=== PATIENT | male | born 1955 | race Caucasian/White ===

== ENCOUNTER 2019-08-05 09:50 | Outpatient (CLI) | payer BC ==
[~2019-08-05] VITALS: Ht 177.8 cm; Wt 104.5 kg
--- NOTE | ~2019-08-05 | HEMODYNAMI ---
PATIENT:YVETTE KEARNS MEDICAL RECORD: [id number] : 59 LOCATION:[facility] ADMISSION DATE: 08/05/19 Generatedon:08/05/201913:56 Patient name: YVETTE KEARNS Patient #: [id number] SSN: [id number] : 1955 Date of study: 08/05/2019 Page: Of Hemodynamic Procedure Report Patient Data Patient Demographics Procedure consent was obtained First Name: YVETTE Gender: Male Last Name: URMILA : 1955 Middle Initial: YING Age: 64 year(s) Patient #: [id number] Race: SSN: [id number] Additional ID: [id number] Contact details Address: [facility] [address] State: [facility] Zip code: [address] Past Medical History History of disease Date Diagnosis Comments CAD Allergies: No known allergies Admission Admission Data Admission Date: 08/05/2019 Admission Time: 9:50 Arrival Date: 08/05/2019 Arrival Time: 0:00 Admit Source: Other Insurance Payor: Private health insurance [facility] #: [id number] Height (in.): 70 BSA: 2.22 (m2) Height (cm.): 177.8 BMI: 33.07 (kg/m2) Weight (lbs.): 230.47 Weight (kg.): 104.54 Lab Results Lab Result Date: 08/05/2019 Lab Result Time: 0:00 Biochemistry Name Units Result Min Max BUN mg/dl 10 --(-*--)-- 7 18 Creatinine mg/dl 0.9 --(-*--)-- 0.6 1.3 eGFR ml/min 90 --(*---)-- 90 120 NONAFRICAN CBC Name Units Result Min Max Hematocrit % 48.8 --(--*-)-- 42 54 Hemoglobin g/dl 16.9 --(---*)-- 13.5 17.5 Procedure Procedure Types Cath Procedure Diagnostic Procedure [facility] w/Coronaries FFR/IVUS FFR Initial Sedation Charges Moderate Sedation up to 30 minutes PCI Procedure Coronary Stent Coronary Stent Initial x2 Hemochron ACT Test Procedure Description Procedure Date Procedure Date: 08/05/2019 Procedure Start Time: 13:21 Procedure End Time: 13:53 Procedure Staff Name Function Oc Bearden MD Performing Physician Mya Peralta RT Monitor Kayla Miles RT Scrub Jose Paige RN Nurse Indication Angina Procedure Data Cath Procedure Fluoroscopy Diagnostic fluoroscopy Total fluoroscopy Time: 8.3 time: 8.3 min min Diagnostic fluoroscopy Total fluoroscopy dose: dose: 1377 mGy 1377 mGy Contrast Material Contrast Material Type Amount (ml) Isovue 300 127 Entry Location Entry Primary Successful Side Size Upsize Upsize Entry Closure Dahl ccessful Closure Location (Fr) 1 (Fr) 2 (Fr) Remarks Device Remarks Radial Right 6 Fr Mechanical artery Short Compression Estimated blood loss: 10 ml Diagnostic catheters Device Type Used For End Catheter Placement DIAGNOSTIC Pledger 110cm 5 Procedure Fr catheter ([id number]) Procedure Complications No complications Procedure Medications Medication Administration Route Dosage Oxygen etCO2 Nasal cannula 2 l/min Lidocaine 2% added to field 20 Heparin Flush Bag added to field 2 bags (1000units/500ml NS) 0.9% NaCl I.V. 100 ml/hr Versed I.V. 2 mg Fentanyl I.V. 50 mcg Versed I.V. 1 mg Fentanyl I.V. 50 mcg Heparin Bolus I.V. 4000 units Versed I.V. 0.5 mg Fentanyl I.V. 25 mcg Hemodynamics Rest BSA: 2.22 (m2) HGB: 16.9 (g/dl) O2 Consumption: Estimated: 254.22 (ml/min) O2 Co nsumption indexed: Estimated:114.51 (ml/min/m) Heart Rate: 63 (bpm) Snapshots Pre Cath Intra NCS Post Cath Vital Signs Time Heart Resp SPO2 etCO2 NIBP (mmHg) Rhythm Pain Sedation Rate (ipm) (%) (mmHg) Status Level (bpm) 12:58:36 61 16 96 0 133/67(95) NSR 0 (11) 10(A) , No pain 13:02:58 67 13 96 40.5 131/75(94) NSR 0 (11) 10(A) , No pain 13:07:21 66 12 95 42.1 123/71(93) NSR 0 (11) 10(A) , No pain 13:11:39 64 14 96 36.7 133/73(114) NSR 0 (11) 10(A) , No pain 13:15:59 64 14 96 38.3 124/70(104) NSR 0 (11) 10(A) , No pain 13:20:19 65 16 95 37.5 122/71(87) NSR 0 (11) 10(A) , No pain 13:24:33 68 15 93 38.3 99/56(74) NSR 0 (11) 9(A) , No pain 13:28:45 67 12 94 40.5 102/66(80) NSR 0 (11) 9(A) , No pain 13:32:55 65 13 94 42.1 103/59(73) NSR 0 (11) 9(A) , No pain 13:37:11 63 12 93 42.8 108/56(82) NSR 0 (11) 9(A) , No pain 13:41:25 62 12 94 42.1 104/57(83) NSR 0 (11) 10(A) , No pain 13:46:28 60 14 95 38.2 122/61(88) NSR 0 (11) 10(A) , No pain 13:50:44 58 16 96 38.2 117/71(84) NSR 0 (11) 10(A) , No pain Medications Time Medication Route Dose Verified Delivered Reason Notes Effectiveness by by 13:00:34 Oxygen etCO2 2 Oc Garcia used for Nasal l/min Suleiman Paige RN procedure cannula 13:00:40 Lidocaine 2% added 20ml Oc Renae for local to vial Suleiman Bearden MD anesthetic field 13:00:45 Heparin Flush added 2 Oc Renae used for Bag to bags Suleiman Bearden MD procedure (1000units/500ml field NS) 13:00:54 0.9% NaCl I.V. 100 Oc Garcia Per physician ml/hr Suleiman Paige RN 13:20:13 Versed I.V. 2 mg Oc Garcia for sedation Suleiman Paige RN 13:20:19 Fentanyl I.V. 50 Oc Buffie for sedation mcg Suleiman Paige RN 13:24:34 Versed I.V. 1 mg Oc Garcia for sedation Suleiman Paige RN 13:24:38 Fentanyl I.V. 50 Oc Sewellie for sedation mcg Suleiman Paige RN 13:29:12 Heparin Bolus I.V. 4000 Oc Garcai for units Suleiman Paige RN anticoagulation 13:33:43 Versed I.V. 0.5 Oc Garcia for sedation mg Suleiman Paige RN 13:33:48 Fentanyl I.V. 25 Oc Garcia for sedation mcg Suleiman Paige RN Procedure Log Time Note 11:37:14 Diagnostic Cath Status : Elective 11:37:41 Indication : Angina 11:47:10 Risk of Mortality: 0.1 11:47:13 Risk of blood transfusion: 0.1 11:47:15 Risk of SONIA: 0.2 11:47:21 Stress Test: no; N/A ? 11:47:26 Lab results completed and on chart. 11:47:57 Lab Result : BUN 10 mg/dl 11:47:57 Lab Result : Creatinine 0.9 mg/dl 11:47:57 Lab Result : Hemoglobin 16.9 g/dl 11:47:57 Lab Result : eGFR NONAFRICAN 90 ml/min 11:47:57 Lab Result : Hematocrit 48.8 % 11:48:02 Admit Source: Other 11:48:06 Procedure Status Elective Heart Cath (OP). 11:48:09 Time tracking: Regular hours (M-F 7:00 - 5:00) 11:48:14 Plan of Care:Hemodynamics will remain stable., Cardiac rhythm will remain stable., Comfort level will be maintained., Respiratory function will remain adequate., Patient/ family verbilizes understanding of procedure., Procedure tolerated without complication., Recovers from procedure without complications.. 11:48:35 Informed consent obtained and on chart 11:49:03 Patient allergic to No known allergies 11:51:04 Arrival Date: 08/05/2019 12:00:00 AM 11:51:13 Insurance Payor : Private health insurance 11:51:31 Patient Height : 70 inches 11:51:35 Patient Weight : 230.47 lbs 11:52:11 H&P Date Dictated: 08/04/2019 Within 30 days and on chart.. 11:52:16 Patient NPO since Midnight. 12:42:22 Jose Paige RN sent for patient. Start room use. 12:47:47 Patient received from Pre/Post Procedure Room to CCL 1 Alert and oriented. Tansferred to table in Supine position. 12:47:53 Warm blankets applied, and bebeto hugger turned on for patient comfort. 12:47:54 Correct patient and procedure confirmed by team. 12:47:54 ECG and BP/O2 sat monitors applied to patient. 12:47:59 Alarms reviewed by R. N. 12:47:59 Sharps counted by scrub and verified by R.N. 12:48:09 Pre-procedure instructions explained to patient. 12:48:10 Pre-op teaching completed and patient verbalized understanding. 12:48:12 Family in waiting room. 12:57:17 Vital chart was started 12:57:19 Baseline sample Acquired. 12:57:23 Rhythm: sinus rhythm 12:57:24 Full Disclosure recording started 12:57:27 Is the patient allergic to Iodine/contrast media? No. 12:57:28 Is patient on blood thinner?Yes 12:57:30 ACC The patient was administered the following blood thiners within the last 24 hours: ACCPlavix 12:57:34 Patient diabetic? No. 12:57:44 Previous problem with sedation/anesthesia? No ? 12:57:45 Snore? Yes 12:57:46 Sleep apnea? No 12:57:47 Deviated septum? No 12:57:49 Opens mouth fully? Yes 12:57:49 Sticks out tongue? Yes 12:57:51 Airway obstruction? No ? 12:57:54 Dentures? No ? 12:57:56 Modified Familia's test Ulnar < 7 seconds 12:57:58 Pre procedure: right dorsailis pedis pulse 1+ Palpable, but thready & weak; easily obliterated 12:58:01 Patient pain scale 0/10 ?. 12:58:15 IV patent on arrival in left forearm with 0.9% NaCl at [facility]. 12:58:24 Right Radial & Right Groin area was prepped with chlora-prep and draped in sterile fashion 13:00:34 Oxygen 2 l/min etCO2 Nasal cannula was administered by Jose Paige RN; used for procedure; Verbal order read back and verified. 13:00:40 Lidocaine 2% 20ml vial added to field was administered by Oc Bearden MD; for local anesthetic; Verbal order read back and verified. 13:00:45 Heparin Flush Bag (1000units/500ml NS) 2 bags added to field was administered by Oc Bearden MD; used for procedure; Verbal order read back and verified. 13:00:54 0.9% NaCl 100 ml/hr I.V. was administered by Jose Paige RN; Per physician; Verbal order read back and verified. 13:02:38 Use device set Radial Dx or PCI 13:02:39 ACIST Syringe (40442) opened to sterile field. 13:02:41 Bag Decanter () opened to sterile field. 13:02:41 ACIST Hand Control (24493) opened to sterile field. 13:02:41 ACIST Manifold (46533) opened to sterile field. 13:02:47 Tegaderm 4 x 4 (1626W) opened to sterile field. 13:02:48 Medline Cath Pack ([id number]) opened to sterile field. 13:02:49 MBrace Wrist Support ([id number]) opened to sterile field. 13:02:50 EMERALD Guide Wire (615-518) opened to sterile field. 13:02:50 SHEATH 6FR RAIN (1174471) opened to sterile field. 13:19:31 --------ALL STOP TIME OUT------ 13:19:31 Final Timeout: patient, procedure, and site verified with staff and physician. All members of the team are in agreement. 13:19:34 Right Radial & Right Groin site verified by team. 13:19:37 Fire Safety Assessment: A--An alcohol-based skin anteseptic being used preoperatively., C--Open oxygen or nitrous oxide is being used., D--An ESU, laser, or fiber-optic light is being used. 13:19:39 Physical assessment completed. ASA score P 2 - A patient with mild systemic disease as per Oc Bearden MD. 13:19:42 1) 90+ Normal kidney functon but urine findings or structural abnormalities or genetic trait point to kidney disease. 13:19:44 Maximum allowable contrast dose (3.7 X eGFR X 0.75)250 ml. 13:19:51 Sedation plan: IV Moderate Sedation Medication:Versed, Fentanyl 13:20:13 Versed 2 mg I.V. was administered by Jose Paige RN; for sedation; Verbal order read back and verified. ::19 Fentanyl 50 mcg I.V. was administered by Jose Paige RN; for sedation; Verbal order read back and verified. 13:21:05 Zero performed for pressure channel P1 13:21:09 Procedure started. 13:21:32 Local anesthetic to right radial artery with Lidocaine 2% by Oc Bearden MD.INITIAL ACCESS ONLY 13:22:00 Zero performed for pressure channel P1 13:22:25 A 6 Fr Short sheath was inserted into the Right Radial artery 13::59 A DIAGNOSTIC Pledger 110cm 5 Fr catheter (077486) was advanced over the wire and used for Procedure. 13:23:32 LV gram done using PUENTES 13:23:35 Injector settings: Ml/sec: 5, Volume: 15, 13:23:52 EF : 65 % 13:24:34 Versed 1 mg I.V. was administered by Jose Paige RN; for sedation; Verbal order read back and verified. 13:24:38 Fentanyl 50 mcg I.V. was administered by Jose Paige RN; for sedation; Verbal order read back and verified. 13:24:41 LCA angiography performed. 13:25:18 RCA angiography performed. 13:25:20 Catheter exchanged over wire. 13:26:05 INFLATOR Merit BasixCompak (QR4747) opened to sterile field. 13:26:06 Fountain Verrata Plus pressure wire (57657Y) opened to sterile field. 13:26:59 Proceeding to intervention. 13:27:03 GUIDE 6FR XBLAD 3.5 catheter ([id number]) opened to sterile field. 13:27:05 6 Fr XBLAD 3.5 guide catheter was inserted over the wire 13:27:11 FFR/IFR wire advanced. 13:27:56 Wire advanced across lesion. 13:28:22 LMCA lesion measured at .74 with IFR 13:28:35 Pre PCI Site: [place] LMCA has 80% stenosis. 13:29:10 IFR WIRE REMOVED 13:29:12 Heparin Bolus 4000 units I.V. was administered by Jose Paige RN; for anticoagulation; Verbal order read back and verified. 13:29:20 CHOICE PT Extra Support 182cm wire ([id number]) opened to sterile field. 13:29:56 Pre PCI Site: [place] Diag1 has 95% stenosis. 13:30:20 CHOICE ES 182 wire advanced. 13:30:35 CHOICE WIRE ADVANCED ACROSS DIAG 13:31:34 The HILLARY RX 2.25 x 15 stent ([id number]) was advanced then removed because of failure to cross lesion 13:33:13 Inflate balloon Inflation number: 1 A EUPHORA 2.0 x 15 Balloon ([id number]) was prepped and advanced across the 1st Diag , then inflated to 17 IRON for 0:00 (min:sec) . 13:33:15 Balloon removed over the wire. 13:33:43 Versed 0.5 mg I.V. was administered by Jose Paige RN; for sedation; Verbal order read back and verified. 13:33:48 Fentanyl 25 mcg I.V. was administered by Jose Paige RN; for sedation; Verbal order read back and verified. 13:34:20 Place stent Inflation Number: 2 A HILLARY RX 2.25 x 15 stent ([id number]) was prepped and advanced across the 1st Diag . The stent was deployed at 15 IRON for 0:00 (min:sec) . 13:34:34 Inflation number: 3 The stent balloon was then re-inflated across the 1st Diag to 21 IRON for 0:00 (min:sec) . 13:35:13 Stent catheter was removed intact over wire. 13:36:24 Place stent Inflation Number: 1 A HILLARY RX 3.5 x 15 stent ([id number]) was prepped and advanced across the LMCA . The stent was deployed at 17 IRON for 0:00 (min:sec) . 13:36:37 Stent catheter was removed intact over wire. 13:37:06 Pre PCI Site: [place] Circ has 90% stenosis. 13:37:12 Wire redirected to CIRC. 13:38:52 UNABLE TO CROSS CIRC LESION. WIRE REMOVED 13:38:58 FIELDER XT 190cm guidewire ([id number]) opened to sterile field. 13:39:09 FIELDER 190 wire advanced. 13:40:44 FIELDER ADVANCED ACROSS THE CIRC 13:41:52 Inflation number: 1 The EUPHORA 2.0 x 15 Balloon ([id number]) was reinflated across the Prox CX , to 23 IRON for 0:00 (min:sec) . 13:42:01 Balloon removed over the wire. 13:43:14 Place stent Inflation Number: 2 A HILLARY RX 3.5 x 08 stent ([id number]) was prepped and advanced across the Prox CX . The stent was deployed at 15 IRON for 0:00 (min:sec) . 13:43:39 Stent catheter was removed intact over wire. 13:43:44 Wire removed. 13:43:44 Guide catheter removed. 13:45:58 Procedure ended.(Physican Out) 13:47:31 ZEPHYR REGULAR TR BAND (642772) opened to sterile field. 13:47:39 Sheath removed intact; hemostasis achieved with Mechanical Compression to the Right Radial artery. 13:47:45 Fluoroscopy time 08.30 minutes. 13:47:49 Fluoroscopy dose: 1377 mGy 13:47:49 Flurop Dose total: 1377 13:47:56 Dose Area Product 06240 mGy/cm. 13:48:01 Contrast amount:Isovue 300 127ml. 13:48:04 Maximum allowable dose exceeded? No. 13:48:05 Sharps counted by scrub and verified by R.N. 13:48:22 [place] band inflated with 10cc of air. 13:48:51 Post-procedure physical assessment completed. ASA score P 2 - A patient with mild systemic disease as per Oc Bearden MD. 13:48:55 Post procedure rhythm: sinus bradycardia 13:49:02 Estimated blood loss: 10 ml 13:49:03 Post procedure instruction explained to patient.Patient verbalizes understanding. 13:49:03 Patient needs reinforcement of post procedure teaching. 13:50:18 Procedure type changed to Cath procedure, Diagnostic procedure, LHC, LHC w/Coronaries, FFR/IVUS, FFR Initial, Sedation Charges, Moderate Sedation up to 30 minutes, PCI procedure, Coronary Stent, Coronary Stent Initial x2, Hemochron ACT Test 13:52:16 ACT drawn and resulted at 311 seconds. (normal therapeutic range 180-240 seconds). 13:52:41 Procedure and supply charges have been captured, reviewed, submitted and are correct. 13:52:46 Procedure Complication : No complications 13:52:48 Vital chart was stopped 13:52:50 [facility] Findings: MVD- PCI performed (see procedure note) 13:52:55 Operative report dictated upon procedure completion. 13:52:55 See physician's report for complete and final results. 13:52:58 Report given to Pre/Post Procedure Room. 13:53:01 Patient transfered to Pre/Post Procedure Room with Bed. 13:53:12 Procedure ended. 13:53:12 Full Disclosure recording stopped 13:53:18 ACC-PCI Only Patient was given prescriptions, or instructed by Oc Bearden MD to start/continue the following medications upon discharge: Plavix 13:53:19 End room use (Document Last) 13:55:19 End room use (Document Last) 13:55:49 End room use (Document Last) Intervention Summary Intervention Notes Time ActionType Lesion and Equipment Used Action# Pressure Duration Attributes 13:31:34 Discard HILLARY RX 2.25 x Stent 15 stent ([id number]) 13:33:13 Inflate 1st Diag EUPHORA 2.0 x 1 17 00:00 balloon 15 Balloon ([id number]) 13:34:20 Place stent 1st Diag HILLARY RX 2.25 x 2 15 00:00 15 stent ([id number]) 13:34:34 Reinflate 1st Diag HILLARY RX 2.25 x 3 21 00:00 stent 15 stent balloon ([id number]) 13:36:24 Place stent LMCA HILLARY RX 3.5 x 1 17 00:00 15 stent ([id number]) 13:41:52 Reinflate Prox CX EUPHORA 2.0 x 1 23 00:00 balloon 15 Balloon ([id number]) 13:43:14 Place stent Prox CX HILLARY RX 3.5 x 2 15 00:00 08 stent ([id number]) Device Usage Item Name Manufacture Quantity Catalog Number Hospital Part Current Minimal Lot# / Charge Number Stock Stock Serial# Code ACIST Syringe Acist 1 67072 247163 490317 905456 20 (31945) Medical Systems Inc Bag Decanter Microtek 1 2001S 841826 30688 186196 5 () Medical Inc. ACIST Hand Acist 1 93826 103834 361065 243170 5 Control Medical (66210) Systems Inc ACIST Manifold Acist 1 65481 080286 279940 532392 5 (26387) Medical Systems Inc Tegaderm 4 x 4 3M 1 1626W 675235 112526 934582 5 (1626W) Medline Cath Medline 1 [id number] 064160 22004 385817 5 Pack ([id number]) MBrace Wrist Advanced 1 140-0250-00 659388 18785 826888 5 Support Vascular (134000963) Dynamics EMERALD Guide Cardinal 1 502-455 699264 131099 095623 5 Wire (502-455) Health SHEATH 6FR Cardinal 1 3337547 693494 0420771 641005 5 RAIN (2256238) Health DIAGNOSTIC Terumo 1 40-8303 909207 708602 933207 5 Pledger 110cm 5 Fr catheter (903549) INFLATOR Merit Merit 1 RA9176 933471 165540 700722 15 BasixCompak Medical (NU6217) Fountain Fountain 1 35719C 738272 958991595 881755 5 Verrata Plus pressure wire (96219K) GUIDE 6FR Cardinal 1 [id number] 752603 622980 151566 10 XBLAD 3.5 Health catheter (67229716) CHOICE PT Crawford 1 [id number] 951912 454191 706547 5 Extra Support Scientific 182cm wire ([id number]) HILLARY RX 2.25 x Medtronic 2 [id number] 998153 7573368 493918 5 [id number] 15 stent [id number] ([id number]) EUPHORA 2.0 x Medtronic 1 [id number] 554500 366788 698731 5 15 Balloon ([id number]) HILLARY RX 3.5 x Medtronic 1 [id number] 973463 2146011 372810 5 [id number] 15 stent ([id number]) FIELDER XT Asahi Intecc 1 [id number] 113392 76233 163925 5 190cm guidewire ([id number]) HILLARY RX 3.5 x Medtronic 1 [id number] 643281 2078609 913230 5 [id number] 08 stent ([id number]) ZEPHYR REGULAR Cardinal 1 242900 226683 3185967 460875 5 [facility] (901076) Signature Audit [place] Stage Time Signature Unsigned Intra-Procedure 08/05/2019 Mya Peralta 1:55:19 PM RT(R) Intra-Procedure 08/05/2019 Jose Paige RN 1:55:49 PM Intra-Procedure 08/05/2019 Oc Bearden 1:56:37 PM [id number] [place] [address]
[~2019-08-05 09:50] MED LIST: BAYER CHEWABLE81 MG PO; PLAVIX75 MG PO; PRAVACHOL40 MG PO
[2019-08-05] MEDS ORDERED: BYSTOLIC5 MG PO (10:26)
[2019-08-05 10:34] VITALS: BP 122/84; Ht 177.8 cm; Wt 104.5 kg
[2019-08-05 10:45] LABS: BASOPHILS 0.5 % (0-2); EOSINOPHILS 2.9 % (0-7); HEMATOCRIT 48.8 % (42.0-54.0); HEMOGLOBIN 16.9 g/dL (13.5-17.5); LYMPHOCYTES 25.5 % (15-50); MCH 32.4 pg (26.0-34.0); MCHC 34.6 g/dL (31.0-37.0); MCV 93.5 fL (80.0-100.0); MEAN PLATELET VOLUME 9.8 fL (7.4-10.4); MONOCYTES 8.3 % (2-11); NEUTROPHILS 62.8 % (40-80); PLATELET COUNT 262 10x3/uL (130-400); RBC 5.22 10x6/uL (4.20-6.10); WBC 6.5 10x3/uL (4.8-10.8)
[2019-08-05 11:09] LABS: ALT (SGPT) 17 U/L (10-68); CALC OSMOLALITY 277 mosm/kg (275-300); CALCIUM 8.6 mg/dL (8.5-10.1); CARBON DIOXIDE 27.8 mmol/L (21.0-32.0); CHLORIDE - SERUM 104 mmol/L (98-107); CHOL - HDL RATIO 3.2 ratio (2.3-4.9); CHOLESTEROL, TOTAL 217 mg/dL (0-200); CREATININE - SERUM 0.9 mg/dL (0.6-1.3); GLUCOSE 124 mg/dL (74-106); HDL CHOLESTEROL 67 mg/dL (32-96); LDL CHOLESTEROL 131 mg/dL (0-100); POTASSIUM - SERUM 3.8 mmol/L (3.5-5.1); SODIUM 139 mmol/L (136-145); TRIGLYCERIDE 95 mg/dL (30-200); UREA NITROGEN 10 mg/dL (7-18); eGFR NON AFRICAN AMERICAN > 90 mL/min (90-120)
--- NOTE | 2019-08-05 14:05 | NUR ---
REC'D TO ROOM 3, S/P BUCKLE ATTACHER VIA STRETCHER. MONITORS ESTAB. FAMILY AT BS. SEE WINDOW MAKER.
--- NOTE | 2019-08-05 14:20 | NUR ---
PT RESTING QUIETLY, R WRIST SITE C/D/I, NO S/S BLEEDING OR SWELLING. PT DENIES PAIN OR NEEDS.
--- NOTE | 2019-08-05 14:50 | NUR ---
R WRIST SITE C/D/I, NO S/S BLEEDING OR HEMATOMA. AT BS. PT DENIES NEEDS.
--- NOTE | 2019-08-05 15:10 | NUR ---
PT REOPSITIONED UP IN BED, SANDWICH AND TEA PROVIDED, AT BS. R WRIST SITE C/D/I. VSS. C/L IN REACH.
--- NOTE | 2019-08-05 15:30 | NUR ---
PT RESTING QUIETLY, VSS. R WRIST SITE C/D/I, NO S/S BLEEDING OR HEMATOMA. REMAINS AT BS.
--- NOTE | 2019-08-05 16:00 | NUR ---
R WRIST SITE C/D/I, NO S/S BLEEDING OR HEMATOMA. VSS. AT BS. PT DENIES NEEDS.
--- NOTE | 2019-08-05 17:00 | NUR ---
3CC AIR REMOVED FROM Z BAND. NO S/S BLEEDING OR SWELLING.
--- NOTE | 2019-08-05 17:15 | NUR ---
TOTAL OF 5CC AIR REMOVED, NO S/S BLEEDING/SWELLING.
--- NOTE | 2019-08-05 17:30 | NUR ---
ALL AIR REMOVED FROM Z BAND. NO S/S BLEEDING/SWELLING.
--- NOTE | 2019-08-05 17:45 | NUR ---
Z BAND OFF, DSG APPLIED. PIV D/C'D INTACT. ALL DISCHARGE INSTRUCTIONS - MEDS AND FOLLOW-UP REVIEWED WITH PT AND HIS . PT ALLOWED TO GET UP AND GET DRESSED.
--- NOTE | 2019-08-05 18:00 | NUR ---
PT UP TO BR INDEPENDENTLY, THEN DISCHARGED VIA WC TO PRIVATE VEHICLE. PT HAS ALL BELONGINGS AND PAPER WORK.
--- NOTE | 2019-08-08 11:54 | OP ---
PATIENT NAME: YVETTE KEARNS MEDICAL RECORD: [id number] :59 LOCATION:D.CAT ADMISSION DATE: SURGEON: TRAV SWANSON MD DATE OF OPERATION: 08/05/2019 PROCEDURES: 1. PTCA stent left main. 2. PTCA stent left circumflex. 3. PTCA stent LAD diagonal. 4. Left heart catheterization. 5. Selective coronary angiography. 6. Left ventriculogram. 7. IFR. INDICATION: Angina and coronary artery disease. PROCEDURE PERFORMED: After informed consent was obtained and after a detailed description of risks, benefits as well as alternative therapies, the patient elected to proceed with angiogram and angioplasty. The right radial area was prepped and draped in normal sterile fashion. Right radial artery was cannulated via modified Seldinger technique with placement of 6-Persian sheath. All catheters exchanged through this sheath. FINDINGS: Left ventriculogram was performed in standard 30-degree PUENTES view, reveals good cardiac wall motion, ejection fraction estimated 60%. SELECTIVE CORONARY ANGIOGRAPHY: 1. Left main has an 80% stenosis and IFR is abnormal. 2. Left circumflex has stenosis at the ostium. After the left main intervention, this was 90%. 3. Left anterior descending has the LAD diagonal with 95% stenosis, left anterior itself has previously placed stents, these are widely patent with no significant restenosis. Elsewise has moderate irregularities of the LAD. 4. The right coronary has previously placed stents. There are multiple areas of 80% stenosis. PTCA STENT OF THE LAD DIAGONAL: The stent used was a 2.25 x 15 mm Osmar. Result was 0% residual stenosis. PTCA STENT OF THE LEFT MAIN: The stent used was a 3.5 x 15 mm [place]. This yielded severe plaque shift into the circumflex. The circumflex has a 90% stenosed. This took a Fielder wire and 2.0 balloon to traverse this and then we finally were able to open that and after giving 3.5 x 8 mm stent to the ostium and circumflex. Result was 0% residual stenosis. OVERALL IMPRESSION: Successful percutaneous transluminal angioplasty stent of the left main, LAD, diagonal and circumflex, all going from 80% to 95% initial stenosis to 0% residual. TRANSINT:[id number] Voice Confirmation ID: [id number] DOCUMENT ID: [id number] OPERATIVE REPORT [id number] KEARNSYVETTE LARA, TRAV TANG at 1154 CC: [id number] DICTATION DATE: 08/05/19 1350 [employer] PROFESSOR: 08/05/19 2322 DEP CLI 08/05/19 [id number] [place] [address]
== END 2019-08-05 18:00 | disposition home or self-care (01) ==
LOC: D.CATH 09:50
PROVIDERS: ATTEND Internal Medicine Interventional Cardiology
DX: I25.110 Atherosclerotic heart disease of native coronary artery with unstable angina pectoris (principal); I10 Essential (primary) hypertension; E78.5 Hyperlipidemia, unspecified; R06.09 Other forms of dyspnea

== ENCOUNTER 2019-08-12 06:52 | Outpatient (CLI) | payer BC ==
[~2019-08-12] VITALS: Ht 177.8 cm; Wt 105.9 kg
--- NOTE | ~2019-08-12 | HEMODYNAMI ---
PATIENT:YVETTE KEARNS MEDICAL RECORD: [id number] : 59 LOCATION:D.CAT ADMISSION DATE: 08/12/19 Generatedon:08/12/201910:34 Patient name: YVETTE KEARNS Patient #: [id number] SSN: [id number] : 1955 Date of study: 08/12/2019 Page: Of Hemodynamic Procedure Report Patient Data Patient Demographics Procedure consent was obtained First Name: YVETTE Gender: Male Last Name: URMILA : 1955 Middle Initial: YING Age: 64 year(s) Patient #: [id number] Race: SSN: [id number] Additional ID: [id number] Contact details Address: [facility] [address] State: [facility] Zip code: [address] Past Medical History History of disease Date Diagnosis Comments CAD Allergies: No known allergies Admission Admission Data Admission Date: 08/12/2019 Admission Time: 6:52 Arrival Date: 08/12/2019 Arrival Time: 9:00 Admit Source: Other Insurance Payor: Private health insurance [facility] #: [id number] Height (in.): 69.69 BSA: 2.21 (m2) Height (cm.): 177 BMI: 33.52 (kg/m2) Weight (lbs.): 231.49 Weight (kg.): 105 Procedure Procedure Types Cath Procedure Diagnostic Procedure Sedation Charges Moderate Sedation up to 30 minutes PCI Procedure Coronary Stent Coronary Stent Initial Hemochron ACT Test Procedure Description Procedure Date Procedure Date: 08/12/2019 Procedure Start Time: 10:08 Procedure End Time: 10:29 Procedure Staff Name Function Oc Bearden MD Performing Physician Arlyn Liang RT Monitor Bridget Tucker RT Scrub Flor Kelly RN Nurse Procedure Data Cath Procedure Fluoroscopy Diagnostic fluoroscopy Total fluoroscopy Time: 6.2 time: 6.2 min min Diagnostic fluoroscopy Total fluoroscopy dose: 881 dose: 881 mGy mGy Contrast Material Contrast Material Type Amount (ml) Isovue 300 55 Entry Location Entry Primary Successful Side Size Upsize Upsize Entry Closure Dahl ccessful Closure Location (Fr) 1 (Fr) 2 (Fr) Remarks Device Remarks Radial Right 6 Fr Mechanical artery Short Compression Estimated blood loss: 5 ml Procedure Complications No complications Procedure Medications Medication Administration Route Dosage Oxygen etCO2 Nasal cannula 2 l/min Heparin Flush Bag added to field 2 bags (1000units/500ml NS) Lidocaine 2% added to field 20 0.9% NaCl I.V. 100 ml/hr Radial Cocktail added to field 1 syringe (Verapamil 2mg/Nitro 400mcg/Heparin 1500units) Versed I.V. 2 mg Fentanyl I.V. 100 mcg Radial Cocktail I.A. 1 syringe (Verapamil 2mg/Nitro 400mcg/Heparin 1500units) Heparin Bolus I.V. 4000 units Versed I.V. 0.5 mg Versed I.V. 0.5 mg Plavix P.O. 75 mg Hemodynamics Rest BSA: 2.21 (m2) HGB: 16.9 (g/dl) O2 Consumption: Estimated: 254.35 (ml/min) O2 Co nsumption indexed: Estimated:115.09 (ml/min/m) Heart Rate: 65 (bpm) Snapshots Pre Cath Intra NCS Post Cath Vital Signs Time Heart Resp SPO2 etCO2 NIBP (mmHg) Rhythm Pain Sedation Rate (ipm) (%) (mmHg) Status Level (bpm) 9:43:19 62 26 98 34.8 110/72(93) NSR 0 (11) 10(A) , No pain 9:47:29 66 23 98 33.2 115/66(85) NSR 0 (11) 10(A) , No pain 9:51:39 70 20 97 37.1 135/76(96) NSR 0 (11) 10(A) , No pain 9:55:59 69 17 95 37 129/65(105) NSR 0 (11) 10(A) , No pain 10:00:09 69 15 94 37.8 121/62(86) NSR 0 (11) 10(A) , No pain 10:04:23 70 19 93 38.6 109/65(77) NSR 0 (11) 10(A) , No pain 10:08:31 70 17 96 43.1 105/70(85) NSR 0 (11) 10(A) , No pain 10:12:41 76 12 87 40.8 108/62(82) NSR 0 (11) 9(A) , No pain 10:16:50 73 11 91 41.6 95/61(76) NSR 0 (11) 9(A) , No pain 10:20:56 72 11 92 41.6 100/59(77) NSR 0 (11) 9(A) , No pain 10:25:04 71 12 90 41.6 109/60(81) NSR 0 (11) 9(A) , No pain 10:29:18 68 15 93 37.9 108/57(86) NSR 0 (11) 10(A) , No pain Medications Time Medication Route Dose Verified Delivered Reason Not es Effectiveness by by 9:41:13 Oxygen etCO2 2 l/min Flor Flor for low 02 sats Nasal Kelly Kelly cannula RN RN 9:41:27 Heparin Flush added 2 bags Flor Flor used for Bag to Kellyfroylan Kelly procedure (1000units/500ml field RN RN NS) 9:41:37 Lidocaine 2% added 20ml Flor Oc used for to vial Robin Bearden MD procedure field RN 9:41:51 0.9% NaCl I.V. 100 Flor Flor Per physician ml/hr Robni Kelly RN RN 9:42:00 Radial Cocktail added 1 Flor Flor for (Verapamil to syringe Kelly Kelly vasodilation 2mg/Nitro field RN RN 400mcg/Heparin 1500units) 10:07:51 Versed I.V. 2 mg Flor Flor for sedation Kellyfroylan Kelly RN RN 10:07:58 Fentanyl I.V. 100 mcg Flor Flor for sedation Kellyfroylan Kelly RN RN 10:09:41 Radial Cocktail I.A. 1 Flor Oc for (Verapamil syringe Robin Bearden MD vasodilation 2mg/Nitro RN 400mcg/Heparin 1500units) 10:12:23 Heparin Bolus I.V. 4000 Flor Flor for ashley ified units Kelly Kelly anticoagulation with RN RN selvin,rn 10:15:01 Versed I.V. 0.5 mg Flor Flor for sedation Kellyfroylan Kelly RN RN 10:18:58 Versed I.V. 0.5 mg Flor Flor for sedation Kelly Kelly RN RN 10:26:45 Plavix P.O. 75 mg Flor Flor for Kellyfroylan Kelly antiplatelet RN RN therapy Procedure Log Time Note 9:04:48 Informed consent obtained and on chart 9:04:58 Diagnostic Cath Status : Elective 9:05:56 Arrival Date: 08/12/2019 9:00:00 AM 9:06:29 Admit Source: Other 9:06:32 Insurance Payor : Private health insurance 9:10:03 Patient Height : 69.69 inches 9:10:06 Patient Weight : 231.49 lbs 9:17:31 Procedure Status Elective Heart Cath (OP). 9:17:34 Flor Kelly RN sent for patient. Start room use. 9:17:35 Time tracking: Regular hours (M-F 7:00 - 5:00) 9:17:39 Plan of Care:Hemodynamics will remain stable., Cardiac rhythm will remain stable., Comfort level will be maintained., Respiratory function will remain adequate., Patient/ family verbilizes understanding of procedure., Procedure tolerated without complication., Recovers from procedure without complications.. 9:31:21 1) 90+ Normal kidney functon but urine findings or structural abnormalities or genetic trait point to kidney disease. 9:31:28 Maximum allowable contrast dose (3.7 X eGFR X 0.75)249 ml. 9:33:22 Patient received from Pre/Post Procedure Room to CCL 2 Alert and oriented. Tansferred to table in Supine position. 9:33:23 Warm blankets applied, and bebeto hugger turned on for patient comfort. 9:33:23 Correct patient and procedure confirmed by team. 9:33:23 ECG and BP/O2 sat monitors applied to patient. 9:41:13 Oxygen 2 l/min etCO2 Nasal cannula was administered by Flor Kelly RN; for low 02 sats; Verbal order read back and verified. 9:41:27 Heparin Flush Bag (1000units/500ml NS) 2 bags added to field was administered by Flor Kelly RN; used for procedure; Verbal order read back and verified. 9:41:37 Lidocaine 2% 20ml vial added to field was administered by Oc Bearden MD; used for procedure; Verbal order read back and verified. 9:41:51 0.9% NaCl 100 ml/hr I.V. was administered by Flor Kelly RN; Per physician; Verbal order read back and verified. 9:42:00 Radial Cocktail (Verapamil 2mg/Nitro 400mcg/Heparin 1500units) 1 syringe added to field was administered by Flor Kelly RN; for vasodilation; Verbal order read back and verified. 9:42:15 Vital chart was started 9:42:16 Baseline sample Acquired. 9:43:30 Rhythm: sinus rhythm 9:43:32 Full Disclosure recording started 9:43:37 H&P Date Dictated: 08/12/2019 H&P Addendum completed by physician on day of procedure. (MUST COMPLETE FOR ALL OUTPATIENTS), New H&P dictated by physician.. 9:43:38 Pre-procedure instructions explained to patient. 9:43:39 Pre-op teaching completed and patient verbalized understanding. 9:43:41 Family in patients room. 9:43:50 Patient NPO since Midnight. 9:43:52 Is the patient allergic to Iodine/contrast media? No. 9:43:53 Was the patient premedicated? Yes 9:43:57 Is patient on blood thinner?Yes 9:44:00 ACC The patient was administered the following blood thiners within the last 24 hours: ACCPlavix 9:44:04 Patient diabetic? No. 9:44:06 Previous problem with sedation/anesthesia? No ? 9:44:08 Snore? No 9:44:09 Sleep apnea? No 9:44:10 Deviated septum? No 9:44:10 Opens mouth fully? Yes 9:44:12 Sticks out tongue? Yes 9:44:15 Airway obstruction? No ? 9:44:19 Dentures? No ? 9:44:22 Pre procedure: right dorsailis pedis pulse 2+ Normal; easily identifiable; not easily obliterated 9:44:24 Pre procedure: left dorsailis pedis pulse 2+ Normal; easily identifiable; not easily obliterated 9:44:26 Patient pain scale 0/10 ?. 9:44:31 IV patent on arrival in left forearm with 0.9% NaCl at KVO. 9:44:33 Lab results completed and on chart. 9:44:39 Risk of Mortality: 0.1 9:44:41 Risk of blood transfusion: 0.1 9:44:45 Risk of SONIA: 0.1 9:44:54 Right Radial & Right Groin area was prepped with chlora-prep and draped in sterile fashion 9:44:54 Alarms reviewed by RZeny N. 9:44:55 Sharps counted by scrub and verified by R.N. 10::59 Physician arrived 10::59 --------ALL STOP TIME OUT------ 10::59 Final Timeout: patient, procedure, and site verified with staff and physician. All members of the team are in agreement. 10:02:02 Right Radial & Right Groin site verified by team. 10:02:05 Fire Safety Assessment: A--An alcohol-based skin anteseptic being used preoperatively., C--Open oxygen or nitrous oxide is being used., D--An ESU, laser, or fiber-optic light is being used. 10:02:08 Physical assessment completed. ASA score P 2 - A patient with mild systemic disease as per Oc Bearden MD. 10:02:12 Sedation plan: IV Moderate Sedation Medication:Versed, Fentanyl 10:02:17 Use device set Radial Dx or PCI 10:02:18 ACIST Syringe (21744) opened to sterile field. 10:02:19 Medline Cath Pack ([id number]) opened to sterile field. 10:02:19 Bag Decanter () opened to sterile field. 10:02:20 ACIST Hand Control (35967) opened to sterile field. 10:02:20 ACIST Manifold (47980) opened to sterile field. 10:02:21 Tegaderm 4 x 4 (1626W) opened to sterile field. 10:02:21 MBrace Wrist Support ([id number]) opened to sterile field. 10:02:23 SHEATH 6FR RAIN (1957534) opened to sterile field. 10:02:24 EMERALD Guide Wire (596-467) opened to sterile field. 10:03:46 Zero performed for pressure channel P1 10:03:51 Zero performed for pressure channel P1 10:03:58 Zero performed for pressure channel P1 10:07:51 Versed 2 mg I.V. was administered by Flor Kelly RN; for sedation; Verbal order read back and verified. 10:07:58 Fentanyl 100 mcg I.V. was administered by Flor Kelly RN; for sedation; Verbal order read back and verified. 10:08:03 GUIDE 6FR HS II SH catheter ([id number]) opened to sterile field. 10:08:03 CHOICE PT Extra Support 182cm wire ([id number]) opened to sterile field. 10:08:04 INFLATOR Merit Gerardok (KC8730) opened to sterile field. 10:08:09 Procedure started. 10:08:13 Local anesthetic to right radial artery with Lidocaine 2% by Oc Bearden MD.INITIAL ACCESS ONLY 10:08:44 A 6 Fr Short sheath was inserted into the Right Radial artery 10:09:41 Radial Cocktail (Verapamil 2mg/Nitro 400mcg/Heparin 1500units) 1 syringe I.A. was administered by Oc Bearden MD; for vasodilation; Verbal order read back and verified. 10:10:20 6 Fr hs 2 sh guide catheter was inserted over the wire 10:10:54 RCA angiography performed. 10:10:56 Injector settings: Ml/sec: 3, Volume: 6, 10:10:57 ACC Pre-intervention AQUILES Flow is 3. 10:10:57 Pre PCI Site: [place] mRCA has 90% stenosis. 10:11:10 choicept wire advanced. 10:11:29 Wire advanced across lesion. 10:12:23 Heparin Bolus 4000 units I.V. was administered by Flor Kelly RN; for anticoagulation; verified with gail montalvo Verbal order read back and verified. 10:12:39 The HILLARY RX 3.5 x 38 stent ([id number]) was advanced then removed because of failure to cross lesion 10:13:05 CHOICE PT Extra Support 182cm wire ([id number]) opened to sterile field. 10:13:34 2nd choice pt extra support wire advanced and used as a kassidy wire 10:15:01 Versed 0.5 mg I.V. was administered by Flor Kelly RN; for sedation; Verbal order read back and verified. 10:15:25 Inflate balloon Inflation number: 1 A EUPHORA 2.5 x 20 Balloon ([id number]) was prepped and advanced across the Prox RCA 90, then inflated to 21 IRON for 0:10 (min:sec) 0. 10:15:47 Inflation number: 1 The EUPHORA 2.5 x 20 Balloon ([id number]) was reinflated across the Mid RCA 90, to 21 IRON for 0:10 (min:sec) 0. 10:15:54 Inflation number: 2 The EUPHORA 2.5 x 20 Balloon ([id number]) was reinflated across the Mid RCA 0, to 21 IRNO for 0:10 (min:sec) . 10:16:05 Inflation number: 2 The EUPHORA 2.5 x 20 Balloon ( ) was reinflated across the Prox RCA 0, to 21 IRON for 0:10 (min:sec) . 10:17:45 The HILLARY RX 3.5 x 38 stent ([id number]) was advanced then removed because of failure to cross lesion 10:18:58 Versed 0.5 mg I.V. was administered by Flor Kelly RN; for sedation; Verbal order read back and verified. 10:19:07 Inflate balloon Inflation number: 3 A EUPHORA 3.5 x 20 Balloon ([id number]) was prepped and advanced across the Prox RCA 90, then inflated to 21 IRON for 0:10 (min:sec) 0. 10:19:45 Inflation number: 3 The EUPHORA 3.5 x 20 Balloon ([id number]) was reinflated across the Mid RCA 90, to 19 IRON for 0:10 (min:sec) 0. 10:20:55 The HILLARY RX 3.5 x 38 stent ([id number]) was advanced then removed because of failure to cross lesion 10:23:35 Place stent Inflation Number: 4 A HILLARY RX 3.0 x 34 stent ([id number]) was prepped and advanced across the Mid RCA 90. The stent was deployed at 23 IRON for 0:10 (min:sec) 0. 10:26:45 Plavix 75 mg P.O. was administered by Flor Kelly RN; for antiplatelet therapy; Verbal order read back and verified. 10:26:48 Stent catheter was removed intact over wire. 10::48 Wire removed. 10:26:49 Guide catheter removed. 10:27:06 ZEPHYR REGULAR TR BAND (263706) opened to sterile field. 10:27:15 Sheath removed intact; hemostasis achieved with Mechanical Compression to the Right Radial artery. 10:27:20 Procedure ended.(Physican Out) 10:: Fluoroscopy time 06.20 minutes. 10:: Flurop Dose total: 881 10:: Fluoroscopy dose: 881 mGy 10::43 Dose Area Product 29259 mGy/cm. 10:27:48 Contrast amount:Isovue 300 55ml. 10:27:51 Maximum allowable dose exceeded? No. 10::51 Sharps counted by scrub and verified by R.N. 10::55 [place] band inflated with 15cc of air. 10:27:57 Insertion/operative site no bleeding no hematoma. 10:28:00 Post right radial artery:stable 10:28:01 Post Procedure Pulses reassessed and unchanged 10:28:05 Post procedure rhythm: unchanged. 10:28:07 Estimated blood loss: 5 ml 10:28:09 Post procedure instruction explained to patient.Patient verbalizes understanding. 10:28:11 Patient needs reinforcement of post procedure teaching. 10::28 Procedure type changed to Cath procedure, Diagnostic procedure, Sedation Charges, Moderate Sedation up to 30 minutes, PCI procedure, Coronary Stent, Coronary Stent Initial, Hemochron ACT Test 10:28:36 Procedure and supply charges have been captured, reviewed, submitted and are correct. 10::41 Procedure Complication : No complications 10::43 Vital chart was stopped 10:29:06 Operative report dictated upon procedure completion. 10:29:06 See physician's report for complete and final results. 10:29:08 Report given to Pre/Post Procedure Room. 10:29:10 Patient transfered to Pre/Post Procedure Room with Stretcher. 10:29:12 Procedure ended. 10:29:12 Full Disclosure recording stopped 10:29:20 ACC-PCI Only Patient was given prescriptions, or instructed by Oc Bearden MD to start/continue the following medications upon discharge: Plavix 10:29:22 End room use (Document Last) 10:30:16 ACT drawn and resulted at 290 seconds. (normal therapeutic range 180-240 seconds). 10:31:13 End room use (Document Last) Intervention Summary Intervention Notes Time ActionType Lesion and Equipment Used Action# Pressure Duration Attributes 10:12:39 Discard HILLARY RX 3.5 x Stent 38 stent ([id number]) 10:15:25 Inflate Prox RCA EUPHORA 2.5 x 1 21 00:10 balloon 20 Balloon ([id number]) 10:15:47 Reinflate Mid RCA EUPHORA 2.5 x 1 21 00:10 balloon 20 Balloon ([id number]) 10:15:54 Reinflate Mid RCA EUPHORA 2.5 x 2 21 00:10 balloon 20 Balloon ([id number]) 10:16:05 Reinflate Prox RCA EUPHORA 2.5 x 2 21 00:10 balloon 20 Balloon ([id number]) 10:17:45 Discard HILLARY RX 3.5 x Stent 38 stent ([id number]) 10:19:07 Inflate Prox RCA EUPHORA 3.5 x 3 21 00:10 balloon 20 Balloon ([id number]) 10:19:45 Reinflate Mid RCA EUPHORA 3.5 x 3 19 00:10 balloon 20 Balloon ([id number]) 10:20:55 Discard HILLARY RX 3.5 x Stent 38 stent ([id number]) 10:23:35 Place stent Mid RCA HILLARY RX 3.0 x 4 23 00:10 34 stent ([id number]) Device Usage Item Name Manufacture Quantity Catalog Number Hospital Part Current M inimal Lot# / Charge Number Stock Stock Serial# Code ACIST Syringe Acist 1 79313 600656 865200 713991 2 0 (94615) Medical Systems Inc Medline Cath Medline 1 [id number] 791190 76797 665653 5 Pack ([id number]) Bag Decanter Microtek 1 695512 46559 776420 5 () Medical Inc. ACIST Hand Acist 1 50121 382023 479886 386589 5 Control Medical (84202) Systems Inc ACIST Manifold Acist 1 98724 862611 055161 006395 5 (18984) Medical Systems Inc Tegaderm 4 x 4 3M 1 1626W 088108 456239 153172 5 (1626W) MBrace Wrist Advanced 1 140-0250-00 357672 14555 053018 5 Support Vascular ([id number]) Dynamics SHEATH 6FR Cardinal 1 4903144 764460 1498582 806822 5 RAIN ([id number]) Health EMERALD Guide Cardinal 1 502455 291599 872287 327159 5 Wire (947-726) Health GUIDE 6FR HS Medtronic 1 [id number] 726033 13714 923002 1 II SH catheter ([id number]) CHOICE PT [place] 2 [id number] 840825 684307 462425 5 Extra Support Scientific 182cm wire ([id number]) INFLATOR Merit Merit 1 HS9147 269064 469311 897785 1 5 [employer] (OK9982) HILLARY RX 3.5 x Medtronic 1 [id number] 290176 7992704 589581 5 [id number] 38 stent ([id number]) EUPHORA 2.5 x Medtronic 1 [id number] 612579 649193 964512 5 [id number] 20 Balloon ([id number]) EUPHORA 3.5 x Medtronic 1 [id number] 554367 392951 180983 5 [id number] 20 Balloon ([id number]) HILLARY RX 3.0 x Medtronic 1 [id number] 568743 7711747 042427 5 [id number] 34 stent ([id number]) ZEPHYR REGULAR Cardinal 1 228093 983013 9711545 599395 5 [facility] ([id number]) Signature Audit [place] Stage Time Signature Unsigned Intra-Procedure 08/12/2019 Arlyn Liang 10:31:13 AM RT(R) Intra-Procedure 08/12/2019 Oc Bearden 10:34:01 AM Signatures Performing Physician : Signature : cO Bearden MD Date : Time : Monitor : Arlyn Liang RT Signature : Date : Time : Nurse : Flor Kelly RN Signature : Date : Time : [address] [place] [address]
[~2019-08-12 06:52] MED LIST changes: +BYSTOLIC5 MG PO
[2019-08-12] MEDS ORDERED: NITROQUICK0.4 MG SL (07:14)
[2019-08-12] MEDS ORDERED: BYSTOLIC5 MG PO (07:14)
[2019-08-12 07:36] VITALS: BP 144/71; Ht 177.8 cm; Wt 105.9 kg
[2019-08-12 07:52] LABS: BASOPHILS 0.4 % (0-2); EOSINOPHILS 2.4 % (0-7); HEMATOCRIT 45.8 % (42.0-54.0); HEMOGLOBIN 16.2 g/dL (13.5-17.5); IMMATURE GRANULOCYTES 0.1 % (0-5); LYMPHOCYTES 19.5 % (15-50); MCH 32.8 pg (26.0-34.0); MCHC 35.4 g/dL (31.0-37.0); MCV 92.7 fL (80.0-100.0); MEAN PLATELET VOLUME 9.7 fL (7.4-10.4); NEUTROPHILS 68.6 % (40-80); PLATELET COUNT 254 10x3/uL (130-400); RBC 4.94 10x6/uL (4.20-6.10); RDW 12.1 % (11.5-14.5)
[2019-08-12 08:05] LABS: CALC OSMOLALITY 281 mosm/kg (275-300); CALCIUM 8.7 mg/dL (8.5-10.1); CARBON DIOXIDE 25.1 mmol/L (21.0-32.0); CHLORIDE - SERUM 105 mmol/L (98-107); CREATININE - SERUM 0.8 mg/dL (0.6-1.3); GLUCOSE 138 mg/dL (74-106); POTASSIUM - SERUM 3.5 mmol/L (3.5-5.1); SODIUM 141 mmol/L (136-145); UREA NITROGEN 9 mg/dL (7-18); eGFR NON AFRICAN AMERICAN > 90 mL/min (90-120)
--- NOTE | 2019-08-12 10:40 | NUR ---
PT ARRIVED BY STRETCHER. PLACED ON MONITORS. ASSESSMENT COMPLETED. VSS. FAMILY AT BEDSIDE. CALL LIGHT WITHIN REACH.
--- NOTE | 2019-08-12 10:55 | NUR ---
RIGHT WRIST Z BAND IN PLACE. NO BLEEDING/HEMATOMA NOTED. CALL LIGHT IWTHIN REACH. FAMILY AT BEDSIDE. NO NEEDS AT THIS TIME.
--- NOTE | 2019-08-12 11:25 | NUR ---
RIGHT WRIST Z BAND IN PLACE. NO BLEEDING/HEMATOMA NOTED. CALL LIGHT WITHIN REACH. FAMILY AT BEDSIDE. NO NEEDS AT THIS TIME. VSS.
--- NOTE | 2019-08-12 12:00 | NUR ---
PT SITTING UP IN BED. VSS. RIGHT WRIST Z BAND IN PLACE. NO BLEEDING/HEMATOMA NOTED. SET UP WITH SANDWICH TRAY AND DRINK. DENIES NAUSEA/PAIN AT THIS TIME. RIGHT HAND WARM TO TOUCH. CAP REIFLL < 3 SECS.
--- NOTE | 2019-08-12 12:30 | NUR ---
RIGHT WRIST Z BAND IN PLACE. NO BLEEDING/HEMATOMA NOTED. CALL LIGHT WITHIN REACH. VSS. NO NEEDS AT THIS TIME. PT RESTING COMFORTABLY. FAMILY AT BEDSIDE.
--- NOTE | 2019-08-12 13:00 | NUR ---
VSS. RIGHT WRIST Z BAND IN PLACE. NO BLEEDING/HEMATOMA NOTED. NO NEEDS AT THIS TIME.
--- NOTE | 2019-08-12 13:30 | NUR ---
2cc OF AIR REMOVED FROM Z BAND. NO BLEEDING/HEMATOMA NOTED. VSS. CALL LIGHT WITHIN REACH. FAMILY AT BEDSIDE.
--- NOTE | 2019-08-12 13:45 | NUR ---
4cc OF AIR REMOVED FROM Z BAND. NO BLEEDING/HEMATOMA NOTED. CALL LIGHT WITHIN REACH. FAMILY AT BEDSIDE.
--- NOTE | 2019-08-12 14:00 | NUR ---
4cc OF AIR REMOVED FROM Z BAND. NO BLEEDING/HEMATOMA NOTED. TOLERATING WELL. VSS. FAMILY AT BEDSIDE.
--- NOTE | 2019-08-12 14:15 | NUR ---
Z BAND REMOVED AND DRESSING APPLIED. NO BLEEDING/HEMATOMA NOTED. BRUISING NOTED FROM PRIOR WRIST ACCESS. RIGHT WRIST BRACE IN PLACE. PT INSTRUCTED TO KEEP ON FOR 2 HOURS AFTER ARRIVAL HOME. DISCUSSED DISCHARGE INSTRUCTIONS WITH PT AND PT'S FAMILY. THEY VOICED UNDERSTANDING.
--- NOTE | 2019-08-12 14:30 | NUR ---
RIGHT WRIST DRESSING C/D/I. NO S/S OF HEMATOMA NOTED. PT TAKEN OUT TO VEHICLE BY WHEELCHAIR. NO S/S OF DISTRESS NOTED. ALL BELONGINGS AND PAPERWORK IN HAND.
--- NOTE | 2019-08-12 16:42 | OP ---
PATIENT NAME: YVETTE KEARNS MEDICAL RECORD: [id number] :59 LOCATION:D.CAT ADMISSION DATE: SURGEON: TRAV SWANSON MD DATE OF OPERATION: 08/12/2019 PROCEDURES: 1. PTCA stent RCA. 2. Selective coronary angiography. INDICATION: Angina and coronary artery disease. PROCEDURE IN DETAIL: After informed consent was obtained and after a detailed description of risks, benefits as well as alternative therapies, the patient elected to proceed with angiogram and angioplasty. The right radial area was prepped and draped in normal sterile fashion. Right radial artery was cannulated via modified Seldinger technique with placement of 6-Icelandic sheath. All catheters exchanged through this sheath. FINDINGS: The right coronary artery is 80+ percent stenosed times 2. This was addressed with a 3.0 x 34 mm Osmar stent. Result was 0% residual stenosis. OVERALL IMPRESSION: Successful percutaneous transluminal coronary angioplasty stent of the right coronary artery going from 80+ percent initial stenosis to 0% residual. TRANSINT:[id number] Voice Confirmation ID: [id number] DOCUMENT ID: [id number] TRAV SWANSON MD at 1642 CC: [id number] DICTATION DATE: 08/12/19 1027 SEAMLESS TUBE ROLLER: 08/12/19 1314 DEP CLI 08/12/19 [id number] [place] [address]
--- NOTE | 2019-08-12 16:42 | HP ---
PATIENT: YVETTE KEARNS MEDICAL RECORD: [id number] ACCOUNT: [id number] LOCATION:[facility] : 59 ADMISSION DATE: 08/12/19 PCP: LLOYD MURRAY MD HISTORY AND PHYSICAL EXAMINATION ADMITTING DIAGNOSES: 1. Angina. 2. Coronary artery disease. 3. Previous percutaneous transluminal coronary angioplasty stent. 4. Hypertension. 5. Hyperlipidemia. HISTORY OF PRESENT ILLNESS: Mr. Kearns has had increasing episodes of chest pain, chest discomfort compatible with angina. He has now class III to IV episodes of chest pain. REVIEW OF SYSTEMS: The patient reports easy bruising but reports no swollen glands. The patient reports no fever, no night sweats, no significant weight gain, no significant weight loss. No significant exercise tolerance. The patient reports no dry eyes, no irritation, no vision change. Patient reports no difficulty hearing and no ear pain. Patient reports no frequent nose bleeds or nose and sinus problems. Patient reports no arm pain on exertion. No shortness of breath while lying down. No history of heart murmur. Patient reports no cough, no wheezing or coughing up blood. Patient reports no abdominal pain, no vomiting. Normal appetite. No diarrhea and not vomiting blood. No nausea and no constipation. Patient reports no incontinence. No difficulty urinating. No hematuria. No increased frequency. Patient reports no muscle aches. No weakness, no arthralgias, no back pain. No swelling of the extremities. Patient reports no abnormal mole, no jaundice, no rashes. Reports no loss of consciousness. No weakness and no numbness. No seizures, dizziness, or headaches. The patient reports no depression, no sleep disturbance, feeling safe in a relationship and no alcohol abuse. Patient reports on fatigue. Reports no runny nose or sinus pressure. No itching, no hives, and no frequent sneezing. PHYSICAL EXAMINATION: CONSTITUTIONAL/GENERAL APPEARANCE: Well nourished, well developed, appears stated age. Level of distress, comfortable. EYES: Lids and conjunctivae noninjected. No discharge. No pallor. ENT: Lips within normal limit. No cyanosis. No pallor. NECK: Carotid arteries, bilateral normal upstroke. No bruits. No thrills. No jugular venous pressure or distention. CERVICAL LYMPH NODES: Nontender. Nonenlarged. THYROID: Not enlarged. No nodules. CARDIOVASCULAR: Precordial exam, nondisplaced. No heaves or pericardial thrills. Rate and rhythm, regular. Heart sounds, normal S1, normal S2. No S3, no gallop, no rub. Systolic murmur, not heard. Diastolic murmur, not heard. RESPIRATORY: Respiratory effort, unlabored. Normal curvature. No thoracic deformity. No chest wall tenderness. Percussion, resonant. Auscultation, clear. No wheezes, no rales, no rhonchi. ABDOMEN: Soft, nondistended, nontender. No abdominal pain, no vomiting and normal appetite. MUSCULOSKELETAL: No joint tenderness, normal gait, normal tone. SKIN: Warm and dry. HISTORY AND PHYSICAL [id number] YVETTE KEARNS OVERALL IMPRESSION: Anginal symptomatology class IV, just like that of his previous angina. Last cardiac intervention in 2008 in an unstable escalating fashion. We will proceed with coronary angiography. Further care depends upon findings of the angiography. TRANSINT:[id number] Voice Confirmation ID: [id number] DOCUMENT ID: [id number] TRAV SWANSON MD at 1642 CC: [id number] DICTATION DATE: 08/12/19 1417 DRAWBRIDGE OPERATOR: 08/12/19 1425 DEP CLI 08/12/19 [address] [place] [address]
== END 2019-08-12 14:30 | disposition home or self-care (01) ==
LOC: D.CATH 06:52
PROVIDERS: ATTEND Internal Medicine Interventional Cardiology
DX: I25.110 Atherosclerotic heart disease of native coronary artery with unstable angina pectoris (principal); I10 Essential (primary) hypertension; E78.5 Hyperlipidemia, unspecified; R06.09 Other forms of dyspnea